=== PATIENT | female | born 2005 | race Two or more races ===

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

== ENCOUNTER 2023-01-17 16:07 | Observation (INO) | payer MEDICAID, OTHER ==
[~2023-01-17] VITALS: Ht 167.6 cm; Wt 72.7 kg
[~2023-01-17 16:07] MED LIST: PREN-96 PO
[2023-01-17 16:41] LABS: Basophils # (auto) 0 10 ^3/uL (0-0.2); Basophils % (auto) 0.1 % (0.0-2.0); Eosinophils # (auto) 0 10 ^3/uL (0-0.8); Eosinophils % (auto) 0.1 % (0.0-7.0); Hematocrit 32.8 % (36.0-46.0); Hemoglobin 10.7 g/dL (12.2-16.2); Lymphocytes # (auto) 1.3 10 ^3/uL (0.4-5.4); Lymphocytes % (auto) 7.3 % (10.0-50.0); Mean Corpuscular Hemoglobin 28.5 pg (28.0-32.0); Mean Corpuscular Hgb Conc. 32.5 g/dL (32.0-36.0); Mean Corpuscular Volume 87.5 fL (80.0-100.0); Monocytes # (auto) 0.9 10 ^3/uL (0-1.3); Monocytes % (auto) 5.2 % (0.0-12.0); Neutrophils # (auto) 15.1 10 ^3/uL (1.6-8.6); Neutrophils % (auto) 87.3 % (37.0-80.0); Red Blood Cells 3.75 10^6/uL (4.0-5.20); Red Cell Distribution Width 13.4 % (11.8-14.3); White Blood Cell 17.3 10^3/uL (4.4-10.8)
[2023-01-17 17:34] LABS: BUN/Creatinine Ratio 10.9; Bilirubin, Total 0.4 mg/dL (0.2-1.0); Total Protein 7.8 g/dL (6.4-8.2)
[2023-01-17] MEDS ORDERED: ONDANSETRON ODT 4 MG TAB PO ONE (19:00)
[2023-01-17 20:22] LABS: Urine Bacteria FEW /hpf (None Seen); Urine Blood Negative /uL (Negative); Urine Mucus FEW (None Seen); Urine Specific Gravity 1.022 (1.001-1.035); Urine WBC 4 /hpf (0 - 5)
[2023-01-17 20:29] LABS: Amphetamine Screen, Urine NEGATIVE (NEGATIVE); Barbiturate Scree,Urine NEGATIVE (NEGATIVE); Benzodiazephine Screen, Urine NEGATIVE (NEGATIVE); Cannabinoid Screen, Urine NEGATIVE (NEGATIVE); Cocaine Screen, Urine NEGATIVE (NEGATIVE); Opiate Scree,Urine NEGATIVE (NEGATIVE); Phencyclidine Screen, Urine NEGATIVE (NEGATIVE)
[2023-01-17] MEDS ORDERED: cefTRIAXone 1GM/50ML D5W 50 ML IV ONE (21:15)
[2023-01-17 21:50] VITALS: BP 100/61
[2023-01-18] MEDS ORDERED: LACTATED RINGER'S 1,000 ML IV ONE
[2023-01-18] MEDS ORDERED: TERBUTALINE SULFATE 1 MG/ML 1ML VIAL SC ONE (00:45)
== END 2023-01-18 02:24 | disposition home or self-care (01) ==
LOC: ER 16:07 → LDRP 21:52
PROVIDERS: ADMIT Obstetrics & Gynecology; ATTEND Obstetrics & Gynecology
DX: O26.893 Other specified pregnancy related conditions, third trimester (principal); R10.9 Unspecified abdominal pain; O21.2 Late vomiting of pregnancy; Z3A.29 29 weeks gestation of pregnancy; Z79.899 Other long term (current) drug therapy
CPT/HCPCS: 36415; 59025; 76705; 76805; 80053; 80307; 80320; 81001; 81002; 83690; 84702; 85025; 94760; 94762; 96361; 96365; 96372; 99284; G0378; J0696; J3105; 96360

== ENCOUNTER 2025-07-05 10:58 | Observation (INO) | payer MEDICAID ==
[2025-07-05 12:49] LABS: Urine Protein, UAD TRACE (Negative)
--- NOTE | 2025-07-05 12:56 | DVH ---
LIMITED OB ULTRASOUND > 14 WKS: HISTORY: Leaking of fluid, pressure, LUIGI check TECHNIQUE: Multiple real-time grayscale images of the gravid uterus with duplex Doppler color flow an d M-mode spectral analysis. COMPARISON: US OB ULTRASOUND COMP GTR 14 WKS on DOS: 01/17/23, OBSTERICAL LIMITED on DOS: 12/05/22 FINDINGS: IUP single live fetus at 36 weeks 4 days based on composite averages of the BPD, head circumference, abdominal circumference and femur length. Estimated weight 3010 grams. heart rate 131 beats per minute. LUIGI 15.9 cm Cervix is not visualized. Cephalic presentation Grade 3 placenta without previa or abruption, in posterior position. IMPRESSION: 1. IUP single live fetus at 36 weeks 4 days AUA corresponding to an RADHA of 07/29/2025. 2. Amniotic fluid index measures 15.9 cm.
[2025-07-05 13:04] LABS: Amphetamine Screen, Urine Neg (NEGATIVE); Barbiturate Scree,Urine Neg (NEGATIVE); Cannabinoid Screen, Urine Pos (NEGATIVE); Opiate Scree,Urine Neg (NEGATIVE); Phencyclidine Screen, Urine Neg (NEGATIVE)
[2025-07-05 13:05] LABS: Benzodiazephine Screen, Urine Neg (NEGATIVE); Cocaine Screen, Urine Neg (NEGATIVE)
--- NOTE | 2025-07-05 17:08 | DVHDS2 ---
Physician Discharge Progress N Final Diagnosis: rom ruled out 36wks pelvic pressure Operations or Procedures: Operations or Procedures nst reactive reviwed,sono Condition on Discharge: Good Disposition: Home Discharge Instructions: Diet: Regular Activity: No Restrictions, As Tolerated Medications: na Follow Up Care: Specialist: 2d Discharge Statement: "Patient was advised to return to the ER or call 911 if any headaches, dizziness, shortness of breath, chest pain, abdominal pain, bleeding, fevers, or worsening of medical condition. Patient was counseled about treatment plan, medications, possible side effects, patientverbalized understanding. All questions were answered to the best of my ability. This discharge took greater then 30 minutes in planning, reviewing documentation, counseling the patient, and discussing with other team members." Visit Coding OBGYN Date of Service: Jul 05, 2025 Billing Provider: MARIA ALEJANDRA BRAY DO [employer] Common Visit Codes: [id number] OBS CARE (HIGH) [employer] Procedure Codes: 64441-28- NON-STRESS TEST MARIA ALEJANDRA BRAY DO Jul 05, 2025 17:08
== END 2025-07-05 13:28 | disposition home or self-care (01) ==
LOC: LDRP 10:58
PROVIDERS: ADMIT Obstetrics & Gynecology; ATTEND Obstetrics & Gynecology
DX: O26.893 Other specified pregnancy related conditions, third trimester (principal); R10.9 Unspecified abdominal pain; Z3A.36 36 weeks gestation of pregnancy; Z98.890 Other specified postprocedural states; Z79.899 Other long term (current) drug therapy
CPT/HCPCS: 59025; 76805; 80307; 81001; 81002; 84112; 94760; G0378